=== PATIENT | male | born 1980 | race Caucasian/White ===

== ENCOUNTER 2022-04-12 23:15 | Emergency (ER) | payer SELFPAY ==
[~2022-04-12] VITALS: Ht 175.3 cm; Wt 72.7 kg
[2022-04-13] MEDS ORDERED: LEVO-72 PO (01:29)
[2022-04-13] MEDS ORDERED: IBUP-2070 PO (01:29)
[2022-04-13] MEDS: LIDOCAINE/PF 1% 2 ML VIAL IM ONE (01:47)
[2022-04-13] MEDS: AZITHROMYCIN 500 MG TABLET PO ONE (01:47)
[2022-04-13] MEDS: CefTRIAXone SODIUM 1 GM/VIAL IM ONE (01:47)
[2022-04-13] MEDS: IBUPROFEN 600 MG TABLET PO ONE (02:52)
[2022-04-13 04:05] VITALS: BP 105/62
== END 2022-04-13 04:17 | disposition home or self-care (01) ==
LOC: EMS 23:16
DX: N50.89 Other specified disorders of the male genital organs (principal); F15.90 Other stimulant use, unspecified, uncomplicated; I50.9 Heart failure, unspecified
CPT/HCPCS: 76870; 96372; 99284; J0696; J3490; Q9967